=== PATIENT | female | born 1950 | race Caucasian/White ===

== ENCOUNTER 2020-05-21 13:34 | Emergency (ER) | payer MEDICARE, SELFPAY ==
--- NOTE | ~2020-05-21 | XR_ITS ---
EXAMINATION: XR knee LT min 4V DATE: 05/21/2020 14:19 INDICATION: Left knee injury and pain. TECHNIQUE: 5 views of left knee were obtained. COMPARISON: None. FINDINGS: Bone alignment is normal. No fracture. There is diffuse osteopenia. There is mild osteoarth ritis of medial and patellofemoral compartments. No knee joint effusion. There are surgical clips in the medial soft tissues. IMPRESSION: 1. Mild left knee osteoarthritis. Reviewed, dictated and finalized at location [facility]. [facility]
[2020-05-21 13:48] VITALS: BP 86/50; PULSE 72; RESP 18; TEMP 37.2; O2SAT 100
--- NOTE | 2020-05-21 13:54 | ED.LOWEXIN ---
HPI - Extremity Injury (Lower) General Chief Complaint: Extremity Injury, Lower Stated Complaint: Extremity Injury, Lower Time Seen by Provider: 05/21/20 13:54 Source: patient and RN notes reviewed History of Present Illness HPI Narrative: Patient is a 70-year-old female who presents the urgent care with complaints of left knee pain. Patient states that she twisted it when seen at the kitchen counter approximately 2 weeks ago. Patient states that she has taken ibuprofen and use Flexeril for the pain. Also reports of ice and a knee brace. Patient states that it seemed to have been getting better but is now worsened in the last 2 days. Patient denies of any known fall or trauma to the knee. Denies any past injury to the left knee. No other acute complaints. No acute distress noted. Patient aware of the plan of care. Some parts of this dictation were generated by voice recognition software and may contain typographical and/or grammatical inaccuracies. Related Data Home Medications Medication Instructions Recorded Confirmed alprazolam 05/21/20 atorvastatin 05/21/20 budesonide mg 05/21/20 carvedilol 05/21/20 fluticasone propion-salmeterol INHALATION 05/21/20 [Advair Diskus] metformin mg PO 05/21/20 potassium chloride meq PO 05/21/20 sertraline mg 05/21/20 torsemide mg 05/21/20 zolpidem 05/21/20 Allergies Allergy/AdvReac Type Severity Reaction Status Date / Time No Known Allergies Allergy Unknown Verified 05/21/20 13:46 Review of Systems Review of Systems: Narrative: CONSTITUTIONAL: Denies fever, chills, or sweats. EYES: Denies visual changes, redness, or discharge. ENT: Denies rhinorrhea, congestion, sore throat, or otalgia. CARDIOVASCULAR: Denies chest pain, palpitations, or edema. RESPIRATORY: Denies cough or dyspnea. GASTROINTESTINAL: Denies abdominal pain, nausea, vomiting, or diarrhea. GENITOURINARY: Denies dysuria or hematuria. SKIN: Denies rash or itching. MUSCULOSKELETAL: reports of left knee pain NEUROLOGIC: Denies headache, numbness, or weakness. All other systems reviewed are negative, except as documented in HPI. PMFSH Comments At the time of my signature, I reviewed and agree with the nursing past medical, surgical, social, and family history. There is no relevant family history pertinent to the patient complaint. Exam Narrative: Exam Narrative: GENERAL: This is a well-nourished, well-developed patient, in no apparent distress. HEAD: normocephalic, atraumatic. EYES: PERRL. Sclera clear/white. Vision is grossly intact. EARS: External ears normal NOSE: External nose normal with no obvious nasal discharge, nares without redness, no rhinorrhea. THROAT: Mucous membranes moist NECK: Neck supple SKIN: warm, intact with no suspicious lesions or rash, good texture and turgor. NEURO: awake, alert, and oriented to person, place and time. There were no obvious focal neurologic abnormalities. EXTREMITIES: notable anterior left knee edema with mild to moderate tenderness, no obvious deformity/dislocation, moderate edema to left knee; no salter's cyst, negative drawer test; positive strong left pedal pulse, ROM to left lower extremity WNL Course Vital Signs Vital signs: Vital Signs Temperature 99.0 F 05/21/20 13:48 Pulse Rate 72 05/21/20 13:48 Respiratory Rate 18 05/21/20 13:48 Blood Pressure 86/50 L 05/21/20 13:48 Pulse Oximetry 100 05/21/20 13:48 Temperature 99.0 F 05/21/20 13:48 Pulse Rate 72 05/21/20 13:48 Respiratory Rate 18 05/21/20 13:48 Blood Pressure 86/50 L 05/21/20 13:48 Pulse Oximetry 100 05/21/20 13:48 Reviewed?patient states that her blood pressure is typically on the lower end. MDM - Extremity Injury (Lower) MDM Narrative Medical decision making narrative: Reviewed x-rays results with patient. Patient is aware the x-ray shows mild left knee osteoarthritis. Advised the patient to continue wearing the knee brace. Elevate and use ice while at
== END 2020-05-21 14:37 | disposition home or self-care (01) ==
PROVIDERS: Emergency Provider Nurse Practitioner Family; PCP Internal Medicine
DX: M17.12 Unilateral primary osteoarthritis, left knee (principal); I11.0 Hypertensive heart disease with heart failure; I50.9 Heart failure, unspecified; E78.00 Pure hypercholesterolemia, unspecified; J44.9 Chronic obstructive pulmonary disease, unspecified; E11.9 Type 2 diabetes mellitus without complications; Z85.3 Personal history of malignant neoplasm of breast; Z90.10 Acquired absence of unspecified breast and nipple
CPT/HCPCS: 73564; 99213; G0463